=== PATIENT | male | born 1940 | race Two or more races ===

== ENCOUNTER 2024-01-08 15:56 | Emergency (ER) | payer MEDICARE, MEDICAID, SELFPAY ==
[2024-01-08 16:01] VITALS: BP 156/80; PULSE 54; RESP 19; TEMP 36.9; O2SAT 96
--- NOTE | 2024-01-08 16:23 | XR_ITS ---
Examination: Duplex scan of the upper extremity, unilateral right complete Date and time of exam: January 08, 2024 1846 hrs. Indications: Right elbow swelling and redness and pain 3 weeks Technique: Duplex scan of the extremity veins using B-mode/grayscale imaging and Doppler spectral analysis and color flow Attention is directed to internal echogenicity, compression and augmentation involving these veins, color flow assessment, spectral analysis Findings: Major deep venous structures in the extremity demonstrate normal course and caliber. There is no evidence of deep vein thrombosis. Normal color flow and spectral analysis Impression: Negative for DVT.. Soft tissue mass heterogeneous echogenicity with internal echoes partially compressible in the soft tissue posterior elbow, 4.7 x 1.5 x 3.7 cm most consistent with abscess, consider MRI elbow without contrast follow-up
--- NOTE | 2024-01-08 16:24 | XR_ITS ---
Examination: Right elbow 3 views Technique: Elbow AP, oblique, lateral 3 views Exam date and time: January 08, 2024 1649 hours INDICATIONS: Palpable lump right elbow 20 days FINDINGS: Soft tissue prominence medial elbow No fracture or dislocation No cortical bone destruction Also prominent soft tissue posterior to the olecranon IMPRESSION: Prominent soft tissue as above, consider ultrasound soft tissue elbow follow-up.
--- NOTE | 2024-01-08 16:24 | PD.EDRME ---
Rapid Medical Screening Exam RME Arrival date/time: 01/08/24 15:56 83-year-old male presents emergency department complaints of right upper extremity swelling the right elbow region Chief Complaint: Skin/Abscess/Foreign Body Time Seen by Provider: 01/08/24 16:04 Vital signs: Vital Signs Temperature 98.5 F 01/08/24 16:01 Pulse Rate 54 L 01/08/24 16:01 Respiratory Rate 19 01/08/24 16:01 Blood Pressure 156/80 H 01/08/24 16:01 Pulse Oximetry (%) 96 01/08/24 16:01 Oxygen Delivery Method Room Air 01/08/24 16:01
[2024-01-08 17:03] LABS: Basophils # (Auto) 0.1 Thou/mm3 (0.0-0.2); Basophils % (Auto) 1 % (0-2.5); Eosinophils # (Auto) 0.3 Thou/mm3 (0.0-0.5); Eosinophils % (Auto) 4 % (0-10); Hematocrit 46.4 % (41.0-53.0); Hemoglobin 15.7 g/dL (13.5-16.0); Immature Granulocytes % (Auto) 0 % (0-0); Immature Granulocytes Auto 0.01 Thou/mm3 (0.00-0.00); Lymphocytes # (Auto) 3.2 Thou/mm3 (1.0-4.8); Lymphocytes % (Auto) 47 % (10-50); Mean Corpuscular HGB Conc 33.8 g/dl (31.0-37.0); Mean Corpuscular Hemoglobin 31.7 pg (25.0-35.0); Mean Corpuscular Volume 94 fL (80-100); Monocytes # (Auto) 0.9 Thou/mm3 (0.0-0.8); Monocytes % (Auto) 13 % (0-12); Neutrophils # (Auto) 2.4 Thou/mm3 (1.8-7.7); Neutrophils % (Auto) 35 % (37-80); Nucleated Red Blood Cell % 0 /100 WBC (0); Platelet Count 155 Thou/mm3 (140-440); RDW Standard Deviation 45.1 fL (35.1-43.9); Red Blood Count 4.96 Miln/mm3 (4.50-5.90); White Blood Count 6.8 Thou/mm3 (3.8-10.6)
[2024-01-08 17:18] LABS: Partial Thromboplastin Time 28.9 Seconds (22.0-36.0); Prothrombin Time 11.4 Seconds (9.0-12.2)
[2024-01-08 17:20] LABS: Alanine Aminotransferase 57 U/L (10-49); Albumin, Serum 3.9 gm/dL (3.4-4.8); Alkaline Phosphatase 86 U/L (46-116); Anion Gap 4 (7-16); Aspartate Amino Transferase 51 U/L (0-34); BUN/Creatinine Ratio 11 Ratio (12-20); Bilirubin,Total 0.5 mg/dL (0.3-1.2); Blood Urea Nitrogen 11 mg/dL (9-23); Calcium 9.3 mg/dL (8.3-10.6); Calcium (Corrected) 9.4 mg/dL (8.5-10.1); Carbon Dioxide 27.1 mMol/L (20.0-31.0); Chloride 106 mMol/L (98-107); Globulin 4.1 gm/dL (2.3-3.5); Glucose 86 mg/dL (74-106); Osmolality,Calculated 272 (275-295); Potassium 4.9 mMol/L (3.4-5.1); Sodium 137 mMol/L (136-145); Uric Acid 5.8 mg/dL (3.7-9.2); eGFR > 60 See Note
--- NOTE | 2024-01-08 21:30 | EDNOTE_ITS ---
ED General RME/HPI General Chief complaint: Skin/Abscess/Foreign Body Stated complaint: PAINFUL LUMP ON RIGHT ELBOW X20 DAYS Time Seen by Provider: 01/08/24 16:04 Arrival date/time: 01/08/24 15:56 CC: Swelling edema and pain to the right elbow HPI onset 1 month ago was seen several weeks ago at [facility] was given medications, but did not go away. The patient has a follow-up appointment February 05 however the pain is gotten worse in the last several days. The patient denies blunt trauma but is admits to repetitive motion. Patient points to an area just on the inside of the elbow where it is swollen. Patient denies fever chills numbness or tingling or pain with movement of his wrist or fingertips. Localized pain is 4-5 out of 10 scale. RME / HPI RME / HPI narrative: 01/08/24 15:56 83-year-old male presents emergency department complaints of right upper extremity swelling the right elbow region Related Data Home Medications ?Medication ?Instructions ?Recorded ?Confirmed clonazepam 2 mg tablet (Klonopin) 2 mg PO HS 11/11/17 11/22/17 levetiracetam 1,000 mg tablet 1,000 mg PO BID 11/11/17 11/22/17 (Keppra) carvedilol 12.5 mg tablet (Coreg) 12.5 mg PO BID 11/22/17 11/22/17 ibuprofen 600 mg tablet 600 mg PO TID PRN Pain 11/22/17 11/22/17 Previous Rx's ?Medication ?Instructions ?Recorded prednisone 20 mg tablet 20 mg PO BID #10 tabs 01/08/24 Allergies Allergy/AdvReac Type Severity Reaction Status Date / Time No Known Allergies Allergy Verified 01/08/24 15:59 Review of Systems Review of Systems Narrative Review of Systems: GEN: No fever, no chills, no weight loss EYES: No discharge, no visual changes, no pain HEENT: No ear pain, no congestion, no sore throat PULM: No shortness of breath, no cough, no congestion CV: No chest pain, no dyspnea on exertion, no palpitations GI: No nausea, no vomiting, no diarrhea, no pain, no constipation : No frequency, no urgency, no dysuria MUSC/SKEL: + joint pain, no back pain SKIN: No rash PSYCH: No hallucinations, no depression HEME/LYMPH: No easy bleeding or bruising tendencies NEURO: No weakness, no headache Past Medical History Past Medical History CARDIAC: Positive Hypercholesterolemia, Deep Vein Thrombosis and Hypertension; Negative Congestive Heart Failure RESPIRATORY: Negative Chronic Obstructive Pulmonary Disease (COPD) GASTROINTESTINAL: Positive Gastroesophageal Reflux Disease GENITOURINARY: Negative Renal Disease ENDOCRINE: Negative Diabetes Mellitus Type 1 or Diabetes Mellitus Type 2 Family History FAMILY HISTORY: Negative Family Neurologic Problems Social History SMOKING STATUS: Never smoker ED Exam Narrative Physical exam: [General: Obese not in acute distress Head normocephalic HEENT: Within acceptable limits Neck is supple nontender Chest equal chest rise nontender to palpation Respiratory: Clear to auscultation no wheezes crackles or rubs CV: Rate rhythm is regular no murmurs rubs or clicks Abdomen is distended secondary to body habitus soft nontender no masses positive bowel sounds all 4 quadrants Back: No CVA tenderness no spinous process tenderness from cervical spine thoracic and lumbar spine Skin: Right upper extremity, no surrounding elbow erythema edema no streaking into the elbow. No open lesions into lesions ulcerations or oozing. No rash or ecchymosis to this area. Otherwise skin is intact no petechiae rash induration ulceration or crepitus Extremities: Right upper extremity, the patient has a soft fluctuant poorly defined edema to the medial aspect of the olecranon that extends mildly distally, there is a small amount of edema to the olecranon but is not firm rigid none of this area is erythematous or edematous to touch. The patient has full range of motion of the elbow. Cap refill in the digits less than 2 seconds. Moving all extremity against resistance cap refill less than 2 seconds neurosensory intact Neuro: Awake alert oriented x3 Glascow coma 15 no focal deficits] Course Course Course Narrative: Patient's case discussed with Dr. Gregorio who agrees this may be an acute bursitis with a ligament involvement in the olecranon resulting in olecranon ulceration however do not feel that this is a septic joint. Quality Measures VTE prophylaxis Orders Category Date Time Status US venous doppler UE RT Stat Exams 01/08/24 16:23 Completed XR elbow comp RT min 3V Stat Exams 01/08/24 16:24 Completed CBC Stat Lab 01/08/24 16:35 Completed Comprehensive Metabolic Panel Stat Lab 01/08/24 16:35 Completed Partial Thromboplastin Time Stat Lab 01/08/24 16:35 Completed Prothrombin Time with INR Stat Lab 01/08/24 16:35 Completed Uric Acid Stat Lab 01/08/24 16:35 Completed Vital Signs Vital signs: Vital Signs Temperature 98.5 F 01/08/24 16:01 Pulse Rate 54 L 01/08/24 16:01 Respiratory Rate 19 01/08/24 16:01 Blood Pressure 156/80 H 01/08/24 16:01 Pulse Oximetry (%) 96 01/08/24 16:01 Oxygen Delivery Method Room Air 01/08/24 16:01 [facility] Patient data External records reviewed:: [facility] previous records Clinical information provided by:: patient Social determinants that could affect healthcare access:: none Patient has the following chronic illnesses:: None How is presenting disease/condition affected by chronic disease/condition?: u neffected by Evaluation data The following diagnostics were reviewed and interpreted by me:: radiology exam(s) Lab and/or radiology exams considered but not ordered:: CBC shows no leukocytosis CMP shows no electrolyte imbalance renal X-ray shows mild effusion Ultrasound shows a fluid-filled area medial and distal olecranon Interpretation Summary: Bursitis Medications Medications considered but not ordered:: None Medication administrations:: None Consultations Consultation(s) initiated? (list below): No Diagnosis Differential Diagnosis ED Complaint MDM: Bursitis, cellulitis or septic joint Most likely diagnosis given after review of the tests above:: Bursitis Admission Indicated Admission indicated?: not indicated Explain why admission is indicated or not indicated:: Stable for outpatient follow-up Admission Request Was there a request for admission?: No Disposition Plan Disposition Plan: Discharge Discharge Attestation Discharge Attestation: The patient and all family members were given an opportunity to ask questions and understood the discharge instructions. Discharge instructions specifically effects, indications for sooner follow up or return to the emergency department, and the expected course of current diagnosis. Patient condition: Stable Medical Decision Making Differential Diagnosis Differential Diagnosis: Bursitis, cellulitis or septic joint Lab Data 01/08/24 16:35 01/08/24 16:35 Labs: Lab Results 01/08/24 Range/Units 16:35 WBC 6.8 (3.8-10.6) Thou/mm3 RBC 4.96 (4.50-5.90) Miln/mm3 Hgb 15.7 (13.5-16.0) g/dL Hct 46.4 (41.0-53.0) % MCV 94 (80-100) fL MCH 31.7 (25.0-35.0) pg MCHC 33.8 (31.0-37.0) g/dl RDW Std Deviation 45.1 H (35.1-43.9) fL Plt Count 155 (140-440) Thou/mm3 Neut % (Auto) 35 L (37-80) % Lymph % (Auto) 47 (10-50) % [place] % (Auto) 13 H (0-12) % Eos % (Auto) 4 (0-10) % Baso % (Auto) 1 (0-2.5) % Neut # (Auto) 2.4 (1.8-7.7) Thou/mm3 Lymph # (Auto) 3.2 (1.0-4.8) Thou/mm3 [place] # (Auto) 0.9 H (0.0-0.8) Thou/mm3 Eos # (Auto) 0.3 (0.0-0.5) Thou/mm3 Baso # (Auto) 0.1 (0.0-0.2) Thou/mm3 Immature Gran # (Auto) 0.01 H (0.00-0.00) Thou/mm3 Absolute Nucleated RBC 0.00 (0.00-0.00) Thou/mm3 Immature Gran % 0 (0-0) % Nucleated RBC % 0 (0) /100 WBC PT 11.4 (9.0-12.2) Seconds INR 1.0 (0.9-1.3) APTT 28.9 (22.0-36.0) Seconds Sodium 137 (136-145) mMol/L Potassium 4.9 (3.4-5.1) mMol/L Chloride 106 (98-107) mMol/L Carbon Dioxide 27.1 (20.0-31.0) mMol/L Anion Gap 4 L (7-16) BUN 11 (9-23) mg/dL Creatinine 1.0 (0.6-1.3) mg/dL Estim Creat Clear Calc Not Performed. eGFR > 60 (60 - ) See Note BUN/Creatinine Ratio 11 L (12-20) Ratio Glucose 86 (74-106) mg/dL Calculated Osmolality 272 L (275-295) Uric Acid 5.8 (3.7-9.2) mg/dL Calcium 9.3 (8.3-10.6) mg/dL Corrected Calcium 9.4 (8.5-10.1) mg/dL Total Bilirubin 0.5 (0.3-1.2) mg/dL AST 51 H (0-34) U/L ALT 57 H (10-49) U/L Alkaline Phosphatase 86 (46-116) U/L Total Protein 8.0 (5.7-8.2) gm/dL Albumin 3.9 (3.4-4.8) gm/dL Globulin 4.1 H (2.3-3.5) gm/dL Albumin/Globulin Ratio 1.0 L (1.2-2.2) Discharge Plan Plan Patient Disposition: HOME (Self Care) Patient condition on transfer: Stable Prescriptions/Referrals Prescriptions/Med Rec: New prednisone 20 mg tablet 20 mg PO BID Qty: 10 0RF Taper: Prednisone Taper 20 mg DAILY for 2 Days and 0 Hour 10 mg DAILY for 2 Days and 0 Hour 5 mg DAILY for 7 Days and 0 Hour No Action carvedilol [Coreg] 12.5 mg Tablet 12.5 mg PO BID ibuprofen 600 mg Tablet 600 mg PO TID PRN (Reason: Pain) clonazepam [Klonopin] 2 mg Tablet 2 mg PO HS levetiracetam [Keppra] 1,000 mg Tablet 1,000 mg PO BID Referrals: Tomi Gardner MD [Physician] - In 1 week No Primary/Family,Physician [Primary Care Provider] - In 1 week Problem List Clinical Impression: Bursitis, olecranon Patient/Caregiver Discharge Instructions Education Materials: What Is Bursitis?, ED Bursitis Elbow Olecranon Print Language: Hungarian Stand Alone Forms: Kelly Award Info., Patient Portal Info Letter Attestation MD Attestation The patient was seen by the midlevel practitioner. I, the co-signing physician, was present during the entire ER visit. While I did not physically examine the patient, I was available for consultation as needed.
[2024-01-08 21:49] VITALS: BP 145/67; PULSE 62; RESP 19; TEMP 37.1; O2SAT 99
== END 2024-01-08 21:49 | disposition home or self-care (01) ==
PROVIDERS: Nurse Practitioner Primary Care; Emergency Provider Emergency Medicine
DX: M70.21 Olecranon bursitis, right elbow (principal)
CPT/HCPCS: 36415; 73080; 80053; 84550; 85025; 85610; 85730; 93971; 99284

== ENCOUNTER 2024-02-24 10:46 | Emergency (ER) | payer MEDICARE, MEDICAID, SELFPAY ==
--- NOTE | 2024-02-24 11:07 | XR_ITS ---
Examination: CT abdomen and pelvis without contrast. Coronal 3-D reconstructions. Sagittal 2-D reconstructions. Date and time of exam:February 24, 2024 1123 hours Comparison June 18, 2023 INDICATIONS: Right-sided flank pain beginning 2 weeks ago, worse today CTDI: vol (mGy): 9.38 DLP: (mGycm): 568 Technique: Axial images of the abdomen have been obtained, 3 mm slice thickness Intravenous contrast material has not been administered. Low dose protocols were performed. One or more of the following dose reduction techniques were used; automated exposure control, adjustment of the mA and/or KV according to patient size, use of iterative reconstruction technique. Findings: Diffuse fatty infiltration throughout the liver Contracted gallbladder Spleen not enlarged No adrenal masses 1 mm nonobstructing right renal calculus image 65 No hydronephrosis or ureteral calculi Aorta normal size IVC filter No pericecal inflammatory change Scattered colonic diverticulosis No bladder mass or bladder calculi Minimal thickening of the urinary bladder wall Moderate osteopenia Transverse prostate dimension 3.9 cm IMPRESSION: 1 mm nonobstructing right renal calculus No hydronephrosis or ureteral calculi No CT findings of appendicitis or bowel obstruction Minimal thickening of the urinary bladder wall, consider cystitis
--- NOTE | 2024-02-24 11:08 | PD.EDRME ---
Rapid Medical Screening Exam RME Arrival date/time: 02/24/24 10:46 83-year-old male presents to the emergency department complains of right flank pain and abdominal pain Chief Complaint: Urogenital-Male Time Seen by Provider: 02/24/24 11:00
[2024-02-24 11:16] VITALS: BP 164/82; PULSE 60; RESP 18; TEMP 37.1; O2SAT 96
[2024-02-24 11:43] LABS: Basophils # (Auto) 0.1 Thou/mm3 (0.0-0.2); Basophils % (Auto) 1 % (0-2.5); Eosinophils # (Auto) 0.3 Thou/mm3 (0.0-0.5); Eosinophils % (Auto) 5 % (0-10); Hematocrit 46.5 % (41.0-53.0); Hemoglobin 15.6 g/dL (13.5-16.0); Immature Granulocytes % (Auto) 0 % (0-0); Lymphocytes # (Auto) 2.4 Thou/mm3 (1.0-4.8); Lymphocytes % (Auto) 47 % (10-50); Mean Corpuscular HGB Conc 33.5 g/dl (31.0-37.0); Mean Corpuscular Hemoglobin 31.1 pg (25.0-35.0); Mean Corpuscular Volume 93 fL (80-100); Monocytes # (Auto) 0.6 Thou/mm3 (0.0-0.8); Monocytes % (Auto) 12 % (0-12); Neutrophils # (Auto) 1.8 Thou/mm3 (1.8-7.7); Neutrophils % (Auto) 35 % (37-80); Nucleated Red Blood Cell % 0 /100 WBC (0); Platelet Count 143 Thou/mm3 (140-440); RDW Standard Deviation 44.3 fL (35.1-43.9); Red Blood Count 5.01 Miln/mm3 (4.50-5.90); White Blood Count 5.1 Thou/mm3 (3.8-10.6)
[2024-02-24 12:06] LABS: Alanine Aminotransferase 42 U/L (10-49); Albumin/Globulin Ratio 1.1 (1.2-2.2); Alkaline Phosphatase 71 U/L (46-116); Anion Gap 6 (7-16); Aspartate Amino Transferase 40 U/L (0-34); BUN/Creatinine Ratio 9 Ratio (12-20); Bilirubin,Total 0.8 mg/dL (0.3-1.2); Blood Urea Nitrogen 9 mg/dL (9-23); Calcium 9.1 mg/dL (8.3-10.6); Calcium (Corrected) 9.1 mg/dL (8.5-10.1); Carbon Dioxide 28.7 mMol/L (20.0-31.0); Chloride 104 mMol/L (98-107); Globulin 3.5 gm/dL (2.3-3.5); Glucose 234 mg/dL (74-106); Lipase 26 U/L (12-53); Osmolality,Calculated 284 (275-295); Potassium 3.9 mMol/L (3.4-5.1); Sodium 139 mMol/L (136-145); Total Protein 7.5 gm/dL (5.7-8.2); eGFR > 60 See Note
[2024-02-24 12:50] LABS: Collection Type, Urine Clean Catch
[2024-02-24 13:31] LABS: Bilirubin,Urine Negative (Negative); Blood,Urine Negative (Negative); Clarity,Urine Clear (Clear/Hazy); Color,Urine Yellow (Lt Yel-Yel); Culture Indicated,Urine Not Indicated; Glucose, Urine 1+ (Negative); Ketones,Urine Negative (Negative); Leukocyte Esterase,Urine Negative (Negative); Nitrite,Urine Negative (Negative); PH,Urine 6.5 (5.0-7.0); Protein,Urine Negative (Neg - Trace); RBC,Urine 3 /hpf (0-3); Specific Gravity,Urine 1.019 (1.001-1.035); Squamous Epithelial Cell,Urine < 1 /hpf (0-5); Urobilinogen,Urine Negative mg/dL (0.0-1.0); WBC,Urine < 1 /hpf (0-5)
--- NOTE | 2024-02-24 16:17 | PD.EDADULT ---
ED General RME/HPI General Chief complaint: Urogenital-Male Stated complaint: R FLANK PAIN Time Seen by Provider: 02/24/24 11:00 Arrival date/time: 02/24/24 10:46 RME / HPI RME / HPI narrative: 02/24/24 10:46 RME: 83-year-old male presents to the emergency department complains of right flank pain and abdominal pain KUAH HPI: 83-year-old male with a history of seizures who presents to the emergency department with approximately 15 days of right mid back pain. Pain is worse when he sits and lays for an extended period of time. Pain is worse with movement. Pain is nonradiating. He denies urinary complaints. Related Data Home Medications ?Medication ?Instructions ?Recorded ?Confirmed clonazepam 2 mg tablet (Klonopin) 2 mg PO HS 11/11/17 11/22/17 levetiracetam 1,000 mg tablet 1,000 mg PO BID 11/11/17 11/22/17 (Keppra) carvedilol 12.5 mg tablet (Coreg) 12.5 mg PO BID 11/22/17 11/22/17 ibuprofen 600 mg tablet 600 mg PO TID PRN Pain 11/22/17 11/22/17 Previous Rx's ?Medication ?Instructions ?Recorded prednisone 20 mg tablet 20 mg PO BID #10 tabs 01/08/24 diazepam 5 mg tablet (Valium) 5 mg PO BID PRN muscle spasm #10 02/24/24 tabs ibuprofen 600 mg tablet 600 mg PO Q8H PRN pain #14 tabs 02/24/24 lidocaine 5 % topical patch 1 patch topical QDAY #15 ea 02/24/24 (Lidoderm) Allergies Allergy/AdvReac Type Severity Reaction Status Date / Time No Known Allergies Allergy Verified 02/24/24 10:49 Review of Systems Review of Systems Systems Reviewed: All systems reviewed, normal except as documented ED Exam Narrative Physical exam: GENERAL APPEARANCE: AxOx4, generally well-appearing, no acute distress, sitting, resting comfortably, no tossing and turning HEENT: NC, AT. MMM. EOMI, clear conjunctiva, oropharynx clear. NECK: Supple without lymphadenopathy. No stiffness or restricted ROM. HEART: Normal rate and regular rhythm, normal S1/S1, no m/r/g LUNGS: CTAB, moving air well. No crackles or wheezes are heard. ABDOMEN: Soft, nontender, nondistended with good bowel sounds heard. BACK: No midline C/T/L spine pain or deformity, mild paraspinal tenderness and palpable spasm over the right L2-L4 region no CVAT, no obvious deformity. EXTREMITIES: Without cyanosis, clubbing or edema. MUSCULOSKELETAL: FROM of all major joints, no chest tenderness NEUROLOGICAL: Grossly nonfocal. Alert and oriented, moving all 4 extremities. CN not formally tested but appear grossly intact. Observed to ambulate with normal gait. Skin: Warm and dry without any rash. Course Quality Measures none Orders Category Date Time Status CT abdomen pelvis wo con Stat Exams 02/24/24 11:07 Completed CBC Stat Lab 02/24/24 11:32 Completed Comprehensive Metabolic Panel Stat Lab 02/24/24 11:32 Completed Lipase Stat Lab 02/24/24 11:32 Completed UA, C/S IF [Urinalysis, C/S if Indicated] Stat Lab 02/24/24 12:38 Completed Vital Signs Vital signs: Vital Signs Temperature 98.7 F 02/24/24 11:16 Pulse Rate 60 02/24/24 11:16 Respiratory Rate 18 02/24/24 11:16 Blood Pressure 164/82 H 02/24/24 11:16 Pulse Oximetry (%) 96 02/24/24 11:16 Oxygen Delivery Method Room Air 02/24/24 11:16 SpO2 96% on room air, patient is not hypoxic [facility] Patient data External records reviewed:: [facility] previous records Clinical information provided by:: patient and family Social determinants that could affect healthcare access:: none Patient has the following chronic illnesses:: Epilepsy How is presenting disease/condition affected by chronic disease/condition?: uneffected by Evaluation data The following diagnostics were reviewed and interpreted by me:: lab results and radiology exam(s) Lab and/or radiology exams considered but not ordered:: As per narrative Interpretation Summary: As per narrative Medications Medications considered but not ordered:: None Medication administrations:: None Consultations Consultation(s) initiated? (list below): No Diagnosis Differential Diagnosis ED Complaint MDM: Musculoskeletal strain, pathologic spinal lesion, renal colic Most likely diagnosis given after review of the tests above:: See below Admission Indicated Admission indicated?: not indicated Explain why admission is indicated or not indicated:: As per narrative Admission Request Was there a request for admission?: No Disposition Plan Disposition Plan: Discharge Discharge Attestation Discharge Attestation: The patient and all family members were given an opportunity to ask questions and understood the discharge instructions. Discharge instructions specifically effects, indications for sooner follow up or return to the emergency department, and the expected course of current diagnosis. Patient condition: Stable Medical Decision Making MDM Narrative MDM Narrative: Mr. Sanchez presents to the emergency department with symptoms and physical exam consistent with musculoskeletal strain of the right para muscle region. He is otherwise he is resting comfortably with palpable spasm over his right paraspinal region. I do believe he will benefit from muscle relaxers, anti-inflammatories, and topical anesthetics. Laboratory testing and CT scan of the abdomen was sent via the E process which shows no acute findings. Differential Diagnosis Differential Diagnosis: Musculoskeletal strain, pathologic spinal lesion, renal colic Lab Data 02/24/24 11:32 02/24/24 11:32 Labs: Lab Results 02/24/24 02/24/24 Range/Units 11:32 12:38 WBC 5.1 (3.8-10.6) Thou/mm3 RBC 5.01 (4.50-5.90) Miln/mm3 Hgb 15.6 (13.5-16.0) g/dL Hct 46.5 (41.0-53.0) % MCV 93 (80-100) fL MCH 31.1 (25.0-35.0) pg MCHC 33.5 (31.0-37.0) g/dl RDW Std Deviation 44.3 H (35.1-43.9) fL Plt Count 143 (140-440) Thou/mm3 Neut % (Auto) 35 L (37-80) % Lymph % (Auto) 47 (10-50) % [place] % (Auto) 12 (0-12) % Eos % (Auto) 5 (0-10) % Baso % (Auto) 1 (0-2.5) % Neut # (Auto) 1.8 (1.8-7.7) Thou/mm3 Lymph # (Auto) 2.4 (1.0-4.8) Thou/mm3 [place] # (Auto) 0.6 (0.0-0.8) Thou/mm3 Eos # (Auto) 0.3 (0.0-0.5) Thou/mm3 Baso # (Auto) 0.1 (0.0-0.2) Thou/mm3 Immature Gran # (Auto) 0.00 (0.00-0.00) Thou/mm3 Absolute Nucleated RBC 0.00 (0.00-0.00) Thou/mm3 Immature Gran % 0 (0-0) % Nucleated RBC % 0 (0) /100 WBC Sodium 139 (136-145) mMol/L Potassium 3.9 (3.4-5.1) mMol/L Chloride 104 (98-107) mMol/L Carbon Dioxide 28.7 (20.0-31.0) mMol/L Anion Gap 6 L (7-16) BUN 9 (9-23) mg/dL Creatinine 1.0 (0.6-1.3) mg/dL Estim Creat Clear Calc Not Performed. eGFR > 60 (60 - ) See Note BUN/Creatinine Ratio 9 L (12-20) Ratio Glucose 234 H (74-106) mg/dL Calculated Osmolality 284 (275-295) Calcium 9.1 (8.3-10.6) mg/dL Corrected Calcium 9.1 (8.5-10.1) mg/dL Total Bilirubin 0.8 (0.3-1.2) mg/dL AST 40 H (0-34) U/L ALT 42 (10-49) U/L Alkaline Phosphatase 71 (46-116) U/L Total Protein 7.5 (5.7-8.2) gm/dL Albumin 4.0 (3.4-4.8) gm/dL Globulin 3.5 (2.3-3.5) gm/dL Albumin/Globulin Ratio 1.1 L (1.2-2.2) Lipase 26 (12-53) U/L Ur Collection Type Clean Catch Urine Color Yellow (Lt Yel-Yel) Urine Clarity Clear (Clear/Hazy) Urine pH 6.5 (5.0-7.0) Ur Specific [place] 1.019 (1.001-1.035) Urine Protein Negative (Neg - Trace) Urine Glucose (UA) 1+ A (Negative) Urine Ketones Negative (Negative) Urine Blood Negative (Negative) Urine Nitrite Negative (Negative) Urine Bilirubin Negative (Negative) Urine Urobilinogen (Auto) Negative (0.0-1.0) mg/dL Ur Leukocyte Esterase Negative (Negative) Urine RBC 3 (0-3) /hpf Urine WBC < 1 (0-5) /hpf Ur Squamous Epith Cells < 1 (0-5) /hpf Urine Bacteria None (None) Ur Culture Indicated? Not Indicated Discharge Plan Plan Patient Disposition: HOME (Self Care) Prescriptions/Referrals Prescriptions/Med Rec: New diazepam [Valium] 5 mg tablet 5 mg PO BID PRN (Reason: muscle spasm) Qty: 10 0RF ibuprofen 600 mg tablet 600 mg PO Q8H PRN (Reason: pain) Qty: 14 0RF lidocaine [Lidoderm] 5 % adhesive patch,medicated 1 patch topical QDAY Qty: 15 0RF Rx Instructions: leave on most painful area for up to 12 hrs No Action carvedilol [Coreg] 12.5 mg Tablet 12.5 mg PO BID ibuprofen 600 mg Tablet 600 mg PO TID PRN (Reason: Pain) clonazepam [Klonopin] 2 mg Tablet 2 mg PO HS levetiracetam [Keppra] 1,000 mg Tablet 1,000 mg PO BID prednisone 20 mg tablet 20 mg PO BID Qty: 10 0RF Taper: Prednisone Taper 20 mg DAILY for 2 Days and 0 Hour 10 mg DAILY for 2 Days and 0 Hour 5 mg DAILY for 7 Days and 0 Hour Referrals: Tomi Gardner MD [Primary Care Provider] - In 1 week Problem List Clinical Impression: Low back pain Patient/Caregiver Discharge Instructions Education Materials: ED Back Care Tips Additional Instructions: Acuda a balaji mian de seguimiento con stover m?dico de atenci?n primaria en 3 a 5 d?as para que le robert un nuevo control. Puede volver al servicio de urgencias antes si los s?ntomas empeoran o si nota alg?n problema nuevo que le preocupe. Print Language: Vietnamese Stand Alone Forms: Kelly Award Info., Patient Portal Info Letter
[2024-02-24] MEDS: KETOROLAC INJ 60 MG/2 ML VIAL 30 MG IM (16:33)
[2024-02-24] MEDS: LIDOCAINE 5% 1 PATCH TOP (16:34)
== END 2024-02-24 16:42 | disposition home or self-care (01) ==
PROVIDERS: Nurse Practitioner Primary Care; Emergency Provider Emergency Medicine; PCP Family Medicine
DX: M54.50 Low back pain, unspecified (principal)
CPT/HCPCS: 36415; 74176; 80053; 81001; 83690; 85025; 96372; 99284; J1885